=== PATIENT | female | born 1995 | race Two or more races ===

== ENCOUNTER 2022-06-20 03:35 | Inpatient (IN) | payer OTHER ==
[~2022-06-20] VITALS: Ht 157.5 cm; Wt 71.7 kg
[2022-06-20] MEDS ORDERED: PRENATAL TABLE1 EAC5 (05:22)
== END 2022-06-22 13:39 | disposition home or self-care (01) | DRG 807 ==
LOC: OB/GYN 03:35 → LDR 03:35 → OB/GYN 13:11
PROVIDERS: ADMIT Obstetrics & Gynecology; ATTEND Obstetrics & Gynecology
PROC: 10E0XZZ Delivery of Products of Conception, External Approach (ICD-10-PCS; principal; 2022-06-20)
PROC: 4A1HXCZ Monitoring of Products of Conception, Cardiac Rate, External Approach (ICD-10-PCS; 2022-06-20)
DX: O80 Encounter for full-term uncomplicated delivery (principal); Z37.0 Single live birth; Z3A.40 40 weeks gestation of pregnancy; Z20.822 Contact with and (suspected) exposure to COVID-19